=== PATIENT | female | born 1995 | race American Indian/Alaskan Native ===

== ENCOUNTER 2016-06-06 08:24 | Emergency (ER) | payer OTHER ==
[2016-06-06 08:24] VITALS: BMI 44.2
[2016-06-06 08:28] VITALS: BP 119/63; PULSE 77; RESP 16; TEMP 97.6; O2SAT 100
--- NOTE | 2016-06-06 09:09 | ED PDOC ---
HPI: Female Pain Time Seen by Provider: 06/06/16 08:39 Chief Complaint (Nursing): Female Genitourinary History Per: Patient History/Exam Limitations: no limitations Onset/Duration Of Symptoms: Days Current Symptoms Are (Timing): Still Present Severity: Mild Associated Symptoms: Nausea, Urinary Symptoms. denies: Fever, Vomiting Alleviating Factors: None Additional Complaint(s): Patient is a 20 year old female who presents to ED for evaluation of urinary frequency and discomfort with urination for 1 week. Patient reports mild right back pain that began 3 days. Denies abdominal pain,fever,chills or vomiting. Similar symptoms in the past, diagnosed with UTI Past Medical History Reviewed: Historical Data, Nursing Documentation, Vital Signs Vital Signs: Last Vital Signs Temp 97.6 F 06/06/16 08:27 Pulse 77 06/06/16 08:27 Resp 16 06/06/16 08:27 BP 119/63 06/06/16 08:27 Pulse Ox 100 06/06/16 08:27 - Medical History PMH: No Chronic Diseases Denies: Depression, Chronic Kidney Disease - Surgical History Surgical History: No Surg Hx - Family History Family History: States: No Known Family Hx - Living Arrangements Living Arrangements: With Family - Immunization History Hx Tetanus Toxoid Vaccination: No Hx Influenza Vaccination: No Hx Pneumococcal Vaccination: No - Home Medications Home Medications: Ambulatory Orders Medication Instructions Recorded Ibuprofen [Motrin] 600 mg PO Q6 #20 tab 04/09/16 Ondansetron ODT [Zofran ODT] 4 mg PO Q6 PRN #10 odt 04/09/16 Nitrofurantoin Macrocrystals 100 mg PO BID #14 cap 06/06/16 [Macrobid] - Allergies Allergies/Adverse Reactions: Allergies Allergy/AdvReac Type Severity Reaction Status Date / Time No Known Allergies Allergy Verified 04/09/16 16:24 Review of Systems Constitutional: Negative for: Fever, Chills Gastrointestinal: Positive for: Nausea. Negative for: Vomiting, Abdominal Pain Genitourinary Female: Positive for: Dysuria, Frequency. Negative for: Hematuria , Vaginal Discharge, Vaginal Bleeding Musculoskeletal: Positive for: Back Pain Neurological: Negative for: Weakness, Numbness Physical Exam - Reviewed Nursing Documentation Reviewed: Yes Vital Signs Reviewed: Yes - Physical Exam Appears: Positive for: Non-toxic, No Acute Distress Skin: Positive for: Normal Color, Warm Eye Exam: Positive for: Normal appearance Neck: Positive for: Normal, Painless ROM Gastrointestinal/Abdominal: Positive for: Normal Exam. Negative for: Tenderness , Distended Back: Positive for: Normal Inspection. Negative for: L CVA Tenderness, R CVA Tenderness Extremity: Positive for: Normal ROM Neurologic/Psych: Positive for: Alert, Oriented - ECG O2 Sat by Pulse Oximetry: 100 (RA) Pulse Ox Interpretation: Normal Medical Decision Making Medical Decision Making: Time: 0850 Initial impression: UTI, uncomplicated Initial plan: -- Urine dip -- Urine culture Urine dip: (+) leukocytes Patient will be discharged at this time with prescription for Macrobid, instructed to follow up with PMD. Scribe Attestation: Documented by Eliza Beck acting as a scribe for Doe Patricio MD MD Scribe Attestation: All medical record entries made by the Scribe were at my direction and personally dictated by me. I have reviewed the chart and agree that the record accurately reflects my personal performance of the history, physical exam, medical decision making, and the department course for this patient. I have also personally directed, reviewed, and agree with the discharge instructions and disposition. Disposition - Clinical Impression Clinical Impression: Urinary tract infection - Patient ED Disposition Is Patient to be Admitted: No Counseled Patient/Family Regarding: Studies Performed, Diagnosis - Disposition Referrals: [facility] [Outside] Disposition: Routine/Home Disposition Time: 09:11 Condition: GOOD Additional Instructions: Follow up with your PCP in 2-3 days. Prescriptions: Nitrofurantoin Macrocrystals [Macrobid] 100 mg PO BID #14 cap Instructions: Urinary Tract Infection in Women (ED)
== END 2016-06-06 09:30 | disposition home or self-care (01) ==
LOC: H.ER 08:24
DX: N39.0 Urinary tract infection, site not specified (principal)

== ENCOUNTER 2016-09-10 10:43 | Emergency (ER) | payer OTHER ==
[2016-09-10 10:45] VITALS: BMI 45.7
[2016-09-10 10:47] VITALS: BP 123/73; PULSE 77; RESP 18; TEMP 98.2; O2SAT 97
--- NOTE | 2016-09-10 11:26 | ED PDOC ---
HPI: Abdomen History Per: Patient History/Exam Limitations: no limitations Onset/Duration Of Symptoms: Hrs (2) Current Symptoms Are (Timing): Better Pain Scale Rating Of: 8 Location Of Pain/Discomfort: RLQ, LLQ, Suprapubic Quality Of Discomfort: Unable To Describe, "Pain" Associated Symptoms: denies: Fever, Chills, Nausea, Vomiting, Diarrhea, Urinary Symptoms Exacerbating Factors: Movement. denies: Deep Breaths Abnormal Vaginal Bleeding: No Last Menstral Period: unsure due to IUD : 1 Para: 0 <Jacobo Sousa - Last Filed: 09/10/16 11:52> Chief Complaint (Provider): Suprapubic pain <Isaiah Parham - Last Filed: 09/10/16 14:21> Time Seen by Provider: 09/10/16 10:49 Chief Complaint (Nursing): Abdominal Pain Additional Complaint(s): 21 year old female presents with complaints of abdominal pain that began at 9: 00AM upon wakening. She notes pain was 8/10 in severity, non radiating but worse with movement, and unable to describe quality of the pain. She states pain is improved but given the severity of pain at onset, she came to the ER. Her abdomen is chiller tender. Last coitus was over 1 month ago. She denies fevers, chills, nausea, vomiting, diarrhea, dysuria, hematuria. Unsure of LMP. IUD was placed in November 2015. PMH: denies Medications: none Allergies: NDKA Surgical hx: denies OFFICE MESSENGER HELPER: , ETOP x 1. Unsure of LMP. IUD (Mirena) November 2015. (Jacobo Sousa) Past Medical History - Medical History PMH: No Chronic Diseases - Immunization History Hx Tetanus Toxoid Vaccination: No Hx Influenza Vaccination: No Hx Pneumococcal Vaccination: No <Jacobo Sousa - Last Filed: 09/10/16 11:52> <Isaiah Parham - Last Filed: 09/10/16 14:21> Vital Signs: Last Vital Signs Temp 98.2 F 09/10/16 10:46 Pulse 77 09/10/16 10:46 Resp 18 09/10/16 10:46 BP 123/73 09/10/16 10:46 Pulse Ox 97 09/10/16 11:53 - Home Medications Home Medications: Ambulatory Orders Medication Instructions Recorded Ibuprofen [Motrin] 600 mg PO Q6 #20 tab 04/09/16 Ondansetron ODT [Zofran ODT] 4 mg PO Q6 PRN #10 odt 04/09/16 Nitrofurantoin Macrocrystals 100 mg PO BID #14 cap 06/06/16 [Macrobid] Nitrofurantoin Macrocrystals 100 mg PO BID #14 cap 09/10/16 [Macrobid] - Allergies Allergies/Adverse Reactions: Allergies Allergy/AdvReac Type Severity Reaction Status Date / Time No Known Allergies Allergy Verified 04/09/16 16:24 Review of Systems Constitutional: Negative for: Fever, Chills, Sweats Eyes: Negative for: Pain ENT: Negative for: Nose Discharge, Nose Congestion Cardiovascular: Negative for: Chest Pain, Palpitations, Orthopnea Respiratory: Negative for: Cough, Shortness of Breath Gastrointestinal: Positive for: Abdominal Pain. Negative for: Nausea, Vomiting , Diarrhea, Constipation Genitourinary Female: Negative for: Dysuria, Incontinence, Hematuria Musculoskeletal: Negative for: Neck Pain, Shoulder Pain, Back Pain Skin: Negative for: Rash, Jaundice, Bruising Neurological: Negative for: Weakness, Numbness, Altered Mental Status <Jacobo Sousa - Last Filed: 09/10/16 11:52> Physical Exam - Reviewed Vital Signs Reviewed: Yes - Physical Exam Appears: Positive for: No Acute Distress Skin: Positive for: Normal Color, Warm. Negative for: Pallor Eye Exam: Positive for: Normal appearance Neck: Positive for: Normal, Painless ROM Cardiovascular/Chest: Positive for: Regular Rate, Rhythm, Murmur. Negative for : Chest Non Tender, Edema, Bradycardia, Tachycardia Respiratory: Positive for: Normal Breath Sounds. Negative for: Accessory Muscle Use, Rales, Rhonchi, Wheezing Gastrointestinal/Abdominal: Positive for: Bowel Sounds (hypoactive), Soft, Tenderness (suprapubic, bilateral lower quadrants), Guarding. Negative for: Mass, Distended Back: Negative for: L CVA Tenderness, R CVA Tenderness Rectal: Positive for: Deferred Extremity: Negative for: Tenderness, Pedal Edema Neurologic/Psych: Positive for: Alert, solid waste facility operator II-XII, Oriented <Jacobo Sousa - Last Filed: 09/10/16 11:52> - ECG O2 Sat by Pulse Oximetry: 97 <Jacobo Sousa - Last Filed: 09/10/16 11:52> - Laboratory Results Result Diagrams: 09/10/16 12:10 09/10/16 12:10 <Isaiah Parham - Last Filed: 09/10/16 14:21> - Progress ED Course And Treament: rule out ectopic , rule out uti Urine Preg CBC BMP UA case d/w Dr. Parham. (Jacobo Sousa) Medical Decision Making <Jacobo Sousa - Last Filed: 09/10/16 11:52> <Isaiah Parham - Last Filed: 09/10/16 14:21> Medical Decision Making: Time: 12:10 Initial Impression: Suprapubic pain Initial Plan: --BMP --Urine test --CBC --Urinalysis Time: 13:40 --Small leukocytes present in urine --Will prescribe Macrobid 100 mg PO BID for 14 days Clinical Impression: UTI Upon provider evaluation patient is medically stable, and requires no further treatment in the ED at this time. Patient will be discharged with Rx for Macrobid. Counseling was provided and all questions were answered regarding diagnosis and need for follow up with PMD in 1-2 days. There is agreement to discharge plan. Return if symptoms persist or worsen. Scribe Attestation: Documented by Antonia Jenkins, acting as a scribe for Isaiah Parham MD Provider Scribe Attestation: All medical record entries made by the Scribe were at my direction and personally dictated by me. I have reviewed the chart and agree that the record accurately reflects my personal performance of the history, physical exam, medical decision making, and the department course for this patient. I have also personally directed, reviewed, and agree with the discharge instructions and disposition. (Isaiah Parham) Disposition <Jacobo Sousa - Last Filed: 09/10/16 11:52> - Disposition Disposition: Routine/Home Disposition Time: 13:40 <Isaiah Parham - Last Filed: 09/10/16 14:21> - Clinical Impression Clinical Impression: Pelvic pain - Disposition Referrals: [facility] [Outside] [facility] [Outside] Condition: IMPROVED Additional Instructions: follow up with your primary doctor in 1-2 days return to the ED with any worsening or concerning symptoms Prescriptions: Nitrofurantoin Macrocrystals [Macrobid] 100 mg PO BID #14 cap Instructions: Pelvic Pain (ED)
[2016-09-10 12:17] LABS: BASO % 0.6 % (0.0-2.0); EOS # 0.1 K/uL (0.0-0.7); EOS % 1.9 % (0.0-4.0); LYMPH # 2.1 K/uL (1.0-4.3); LYMPH % 29.5 % (20.0-40.0); MEAN CELL VOLUME 99.2 fl (81.0-99.0); MEAN CORPUSCULAR HEMOGLOBIN 33.8 pg (27.0-31.0); MEAN CORPUSCULAR HGB CONC 34.1 g/dL (33.0-37.0); MEAN PLATELET VOLUME 9.5 fl (7.2-11.7); MONO # 0.5 K/uL (0.0-0.8); MONO % 6.5 % (0.0-10.0); NEUT # 4.3 K/uL (1.8-7.0); NEUT % 61.5 % (50.0-75.0); NRBC % 0.1 % (0.0-0.0); RBC 4.13 Mil/uL (3.80-5.20); RED CELL DISTRIBUTION WIDTH 13.2 % (11.5-14.5)
[2016-09-10 12:39] LABS: SQUAMOUS EPITHIAL 12 /hpf (0-5); URINE BACTERIA OCC (<OCC); URINE BILIRUBIN NEGATIVE (NEGATIVE); URINE BLOOD NEGATIVE (NEGATIVE); URINE CLARITY CLOUDY (Clear); URINE COLOR AMBER (YELLOW); URINE GLUCOSE (UA) NEG (Normal); URINE LEUKOCYTE ESTERASE MOD Leu/uL (Negative); URINE NITRATE POSITIVE (NEGATIVE); URINE PROTEIN 30 mg/dL (NEGATIVE); URINE UROBILINOGEN 0.2-1.0 mg/dL (0.2-1.0)
[2016-09-10 12:40] LABS: BLOOD UREA NITROGEN 10 mg/dl (7-17); CALCIUM 9.1 mg/dL (8.4-10.2); GFR AFRICAN-AMERICAN > 60; GFR NON-AFRICAN AMERICAN > 60
== END 2016-09-10 14:08 | disposition home or self-care (01) ==
LOC: H.ER 10:43
DX: N39.0 Urinary tract infection, site not specified (principal); R10.2 Pelvic and perineal pain